=== PATIENT | female | born 1970 | race Two or more races ===

== ENCOUNTER 2016-10-29 20:45 | Emergency (ER) | payer OTHER ==
--- NOTE | ~2016-10-29 | CT71 ---
[facility] A Service [facility] RADIOLOGY TEXT RESULTS PATIENT: HARPER AREVALO LOCATION: JOE : 66 UNIT #: [id number] AGE: [address]: Anisha Richey MD SEX: F ORDER DR: [id number] [place], [place] [address] [id number] MR#: [id number] Acc #: [id number] NAME: HARPER AREVALO : 1970 SEX: F STUDY DATE/TIME: 10/30/2016 0:00 UNIT: JOE ROOM: STUDY DESCRIPTION: CT Head Wo Contrast Attending Physician: Anisha Richey M.D. Ordering Physician: Anisha Richey M.D. Primary Care Physician: River Nassar M.D. MEDICAL IMAGING REPORT This report is preliminary unless electronic signature is present EXAM CT head INDICATIONS Seizure for 1 day. Dizziness, headache, and blurred vision. TECHNIQUE CT head without contrast. This CT exam was performed with one or more of the following radiation dose reduction techniques: automatic control, adjustment of mA and/or kV according to patient size, and iterative reconstruction. COMPARISON None available. FINDINGS Axial noncontrast images were obtained from the skull base to the vertex. Ventricular size and configuration are normal. There is no evidence of acute infarct or hemorrhage. There are no extra-axial fluid collections. No mass lesion or mass effect is seen. There are no skull fractures. IMPRESSION Normal noncontrast head CT. Dictated by... Pierre Thomason M.D. THIS IS AN ELECTRONICALLY VERIFIED REPORT Pierre Thomason M.D. at 10/30/2016 11:10 PM RPC/rnr TD: 10/30/2016 05:10 [facility] A Service [facility] RADIOLOGY TEXT RESULTS PATIENT: HARPER AREVALO LOCATION: JOE : 66 UNIT #: [id number] AGE: [address]: Anisha Richey MD SEX: F ORDER DR: JOSE #: [id number] MEDICAL IMAGING REPORT Page 1 of 1 COPY
--- NOTE | ~2016-10-29 | EKG ---
PATIENT: HARPER AREVALO UNIT #: [id number] Ventricular Rate: 66 BPM Atrial Rate: 66 BPM P-R Interval: 152 ms QRS Duration: 84 ms Q-T Interval: 406 ms QTC Calculation(Bezet): 425 ms P [place]: 6 degrees Calculated R [place]: 14 degrees Calculated T [place]: -3 degrees Diagnosis Line: Normal sinus rhythm Diagnosis Line: Minimal voltage criteria for LVH, may be normal Diagnosis Line: variant Diagnosis Line: Borderline ECG Diagnosis Line: No previous ECGs available Diagnosis Line: Confirmed by ZION ARGUETA MD ([id number]) on Diagnosis Line: 10/30/2016 4:30:17 PM INTERPRETING MD: KENDALL RAYGOZA
[2016-10-29 23:47] LABS: URINE SOURCE CLEAN CATCH
[2016-10-30] LABS: URINE APPEARANCE CLEAR; URINE BILIRUBIN NEG (NEG); URINE BLOOD NEG (NEG); URINE COLOR YELLOW; URINE GLUCOSE NEG (NEG); URINE KETONE NEG (NEG); URINE LEUKOCYTE ESTERASE TRACE (NEG); URINE NITRATE NEG (NEG); URINE PH 6.5 (5-8); URINE PROTEIN NEG (NEG); URINE SPECIFIC GRAVITY 1.012 (1.003-1.035); URINE UROBILINOGEN 0.2 MG/DL (NEG)
[2016-10-30 00:05] LABS: URBCS1 AUWI 0-2 /[HPF] (0-2); URINE BACTERIA AUWI NEG (NEGATIVE); URINE SQUAMOUS EPITHELIAL CELL NONE SEEN /[HPF]
[2016-10-30 00:09] LABS: CULTURE INDICATED? NO
[2016-10-30 00:10] LABS: AMPHETAMINE NEG (NEG); BARBITURATES NEG (NEG); BENZODIAZEPINES NEG (NEG); COCAINE NEG (NEG); MARIJUANA NEG (NEG); OPIATES NEG (NEG); TRICYCLIC ANTIDEPRESSANTS NEG (NEG); U METHADONE NEG (NEG)
[2016-10-30 01:08] LABS: BASOPHIL# 0.1 X10e3 (0-0.3); BASOPHIL% 0.8 % (0-2.5); DIFF IND NO; EOSINOPHIL# 0.2 X10e3 (0-0.7); EOSINOPHIL% 1.1 % (0.0-7.0); HEMOGLOBIN 12.6 gm/dL (12.0-16.0); LYMPHOCYTE# 2.7 X10e3 (1.0-3.5); LYMPHOCYTE% 17.9 % (17.0-45.0); MEAN CELL VOLUME 76.5 FL (83-96); MEAN CORPUSCULAR HEMOGLOBIN 24.7 PG (28-34); MEAN CORPUSCULAR HGB CONC 32.2 g/dL (30-36); MEAN PLATELET VOLUME 7.8 FL (6.5-11.5); MONOCYTE# 0.9 X10e3 (0-1.0); MONOCYTE% 5.7 % (3.0-12.0); NEUTROPHIL# 11.1 X10e3 (1.5-7.1); NEUTROPHIL% 74.5 % (40-75); PLATELET COUNT 250 X10e3 (140-420); RED CELL DISTRIBUTION WIDTH 18.5 % (11.0-15.5)
[2016-10-30 01:28] LABS: ALBUMIN SERUM 4.3 g/dL (3.5-5.0); ALKALINE PHOSPHATASE 56 U/L (32-92); ALT (SGPT) 18 U/L (10-40); AST (SGOT) 23 U/L (10-42); BILIRUBIN, DIRECT 0.1 mg/dL (0.0-0.2); BILIRUBIN,INDIRECT 0.7 mg/dL (0.0-0.9); BILIRUBIN,TOTAL 0.8 mg/dL (0.2-2.0); BLOOD UREA NITROGEN 11 mg/dL (9-23); BUN/CREATININE RATIO 18.33; CALCIUM SERUM 9.4 mg/dL (8.4-10.2); CARBON DIOXIDE 25 mmol/L (22-31); CHLORIDE 102 mmol/L (100-111); CREATININE SERUM 0.6 mg/dL (0.6-1.4); GLOM FILT RATE Estimated 107.8 mL/min (>60); GLUCOSE FASTING 117 mg/dL (70-110); POTASSIUM 3.9 mmol/L (3.5-5.1); PROTEIN TOTAL SERUM 7.3 g/dL (6.0-8.3); SODIUM 133 mmol/L (135-145)
[2016-10-30 01:29] LABS: ALCOHOL BLOOD <5 mg/dL (0)
== END 2016-10-30 01:00 | disposition home or self-care (01) ==
LOC: CED 20:45
PROVIDERS: Emergency Medicine
DX: R56.9 Unspecified convulsions (principal)
CPT/HCPCS: 36415; 70450; 80048; 80076; 80307; 81003; 82947; 84703; 85025; 93005; 99284; G0480